=== PATIENT | male | born 1945 | race Caucasian/White ===

== ENCOUNTER 2016-11-04 09:27 | Emergency (ER) | payer MEDICARE, MEDICAID ==
[~2016-11-04] VITALS: Ht 180.3 cm; Wt 84.5 kg
[2016-11-04 09:31] VITALS: BP 107/66
[2016-11-04 10:30] LABS: HEMATOCRIT 44.9 % (39.2-51.8); HEMOGLOBIN 14.6 g/dL (13.7-18.0); WHITE BLOOD COUNT 9.9 x10^3/uL (3.4-10)
[2016-11-04 10:34] LABS: BLOOD UREA NITROGEN 17 mg/dL (7-18)
[2016-11-04 10:37] LABS: ASPARTATE AMINO TRANSFERASE 28 U/L (15-37)
[2016-11-04 10:42] LABS: ANISOCYTOSIS 1+; MICROCYTOSIS 1+
[2016-11-04 10:43] LABS: OVALOCYTES 1+
== END 2016-11-04 11:52 | disposition home or self-care (01) ==
LOC: ED 11:30
DX: F10.129 Alcohol abuse with intoxication, unspecified (principal); J44.9 Chronic obstructive pulmonary disease, unspecified; I10 Essential (primary) hypertension; F17.210 Nicotine dependence, cigarettes, uncomplicated
CPT/HCPCS: 36415; 80053; 80307; 82140; 85025; 85610; 85730; 99284

== ENCOUNTER 2016-11-18 17:28 | Emergency (ER) | payer MEDICARE, MEDICAID ==
[~2016-11-18] VITALS: Ht 177.8 cm; Wt 85.5 kg
[2016-11-18] MEDS ORDERED: THIAMINE 100MG TABLET PO ONE (18:00)
[2016-11-18] MEDS ORDERED: ALBUTEROL/IPRATROPIUM 2.5MG/0.5MG, 3 ML NPPB ONE (18:00)
[2016-11-18 18:27] LABS: HEMOGLOBIN 13.9 g/dL (13.7-18.0); WHITE BLOOD COUNT 6.9 x10^3/uL (3.4-10)
[2016-11-18 18:33] LABS: ASPARTATE AMINO TRANSFERASE 41 U/L (15-37); BLOOD UREA NITROGEN 19 mg/dL (7-18)
[2016-11-18 18:36] LABS: ACETAMINOPHEN < 2 mcg/mL (10-30)
[2016-11-18] MEDS ORDERED: ALBUTEROL/IPRATROPIUM 2.5MG/0.5MG, 3 ML ONE (18:39)
[2016-11-18] MEDS ORDERED: THIAMINE 100MG TABLET ONE (18:43)
[2016-11-18] MEDS ORDERED: AZITHROMYCIN 250 MG TABLET ONE (19:20)
[2016-11-18] MEDS ORDERED: AZITHROMYCIN 500 MG TABLET PO ONE (19:30)
[2016-11-19 00:22] VITALS: BP 114/60
== END 2016-11-19 00:24 | disposition home or self-care (01) ==
LOC: ED 21:14
DX: F10.129 Alcohol abuse with intoxication, unspecified (principal); J44.1 Chronic obstructive pulmonary disease with (acute) exacerbation
CPT/HCPCS: 36415; 71010; 80053; 80307; 80329; 85025; 93005; 94640; 99285; J7620; G0479; G0480

== ENCOUNTER 2017-04-12 13:30 | Inpatient (IN) | payer MEDICARE, MEDICAID ==
[~2017-04-12] VITALS: Ht 180.3 cm; Wt 87.3 kg
[2017-04-12] MEDS ORDERED: ALBUTEROL/IPRATROPIUM 2.5MG/0.5MG, 3 ML NPPB ONE (15:00)
[2017-04-12] MEDS ORDERED: methylPREDNISolone SOD SUCC 125 MG/2 ML IVPush SCH (17:30)
[2017-04-12] MEDS ORDERED: LORazepam 2 MG/ML, 1ML IVPush ONE (17:30)
[2017-04-12] MEDS ORDERED: SODIUM CHLORIDE 0.9% 1,000ML IVBOLUS ONE (17:30)
[2017-04-12 17:39] LABS: BASOPHILS # (AUTO) 0.05 x10^3/uL (0-0.1); BASOPHILS % (AUTO) 1 % (0-1); EOSINOPHILS # (AUTO) 0.02 x10^3/uL (0-0.4); EOSINOPHILS % (AUTO) 0 % (1-7); LYMPHOCYTES # (AUTO) 1.39 x10^3/uL (1-3.4); LYMPHOCYTES % (AUTO) 26 % (22-44); MD NO; MEAN CORPUSCULAR HEMOGLOBIN 27.9 pg (27.5-34.5); MEAN CORPUSCULAR HGB CONC 32.2 g/dL (33.2-36.2); MEAN CORPUSCULAR VOLUME 86.7 fL (81-97); MEAN PLATELET VOLUME 7.8 fL (7.4-10.4); MONOCYTES # (AUTO) 0.95 x10^3/uL (0.2-0.8); MONOCYTES % (AUTO) 18 % (2-9); NEUTROPHILS # (AUTO) 3.04 x10^3/uL (1.8-6.8); NEUTROPHILS % (AUTO) 56 % (42-75); PLATELET COUNT 295 x10^3/uL (130-400); RED CELL DISTRIBUTION WIDTH 18.8 % (9.4-14.8)
[2017-04-12] MEDS ORDERED: methylPREDNISolone SOD SUCC 125 MG/2 ML ONE (17:41)
[2017-04-12] MEDS ORDERED: LORazepam 2 MG/ML, 1ML ONE (17:42)
[2017-04-12 17:49] LABS: ANION GAP 12 mmol/L (5-15); CALCIUM 7.7 mg/dL (8.5-10.1); CHLORIDE 101 mmol/L (98-107)
[2017-04-12 17:51] LABS: CREATININE 0.82 mg/dL (0.7-1.3)
[2017-04-12] MEDS ORDERED: UMEC1DIS INH (18:11)
[2017-04-12] MEDS ORDERED: OMEP20TA62 PO (18:11)
[2017-04-12] MEDS ORDERED: ALBU18HF IH (18:11)
[2017-04-12] MEDS ORDERED: AMLO10TA2 PO (18:11)
[2017-04-12] MEDS ORDERED: POTASSIUM CHLORIDE 20 MEQ, MAGNESIUM SULFATE 2 GM, THIAMINE 100 MG, MVI ADULT 10 ML, FO... IV SCH (20:03)
[2017-04-12] MEDS ORDERED: ONDANSETRON 2MG/ML, 2ML IVPush PRN (20:30)
[2017-04-12] MEDS ORDERED: hydrALAzine 20 MG/ML, 1ML IVPush PRN (20:30)
[2017-04-12] MEDS ORDERED: LORazepam 2 MG/ML, 1ML IV PRN ×4 (20:30)
[2017-04-12] MEDS ORDERED: ACETAMINOPHEN 325 MG TABLET PO PRN (20:30)
[2017-04-12] MEDS ORDERED: D5%-0.9% NACL 1,000 ML IV SCH (20:30)
[2017-04-12] MEDS ORDERED: ALBUTEROL/IPRATROPIUM 2.5MG/0.5MG, 3 ML NPPB PRN (20:30)
[2017-04-12 21:00] VITALS: BP 152/76
[2017-04-12] MEDS ORDERED: ALBUTEROL SULFATE 2.5 MG/3 ML NPPB PRN (21:30)
[2017-04-12] MEDS: ENOXAPARIN 40 MG/0.4 ML SQ SCH (21:31)
[2017-04-12] MEDS: POTASSIUM CHLORIDE 20 MEQ, MAGNESIUM SULFATE 2 GM, MVI ADULT 10 ML, FOLIC ACID 1 MG in ... IV SCH (21:55)
[2017-04-12] MEDS: THIAMINE 100MG TABLET PO SCH (22:32)
[2017-04-12 22:43] VITALS: BP 139/68
[2017-04-13 01:50] VITALS: BP 126/65
[2017-04-13] MEDS: methylPREDNISolone SOD SUCC 125 MG/2 ML IVPush SCH ×5 (03:49→23:53)
[2017-04-13 05:41] LABS: BASOPHILS # (AUTO) 0.01 x10^3/uL (0-0.1); BASOPHILS % (AUTO) 0 % (0-1); EOSINOPHILS % (AUTO) 0 % (1-7); LYMPHOCYTES # (AUTO) 0.65 x10^3/uL (1-3.4); LYMPHOCYTES % (AUTO) 11 % (22-44); MD NO; MEAN CORPUSCULAR HEMOGLOBIN 28.7 pg (27.5-34.5); MEAN CORPUSCULAR HGB CONC 33.1 g/dL (33.2-36.2); MEAN CORPUSCULAR VOLUME 86.6 fL (81-97); MEAN PLATELET VOLUME 8.1 fL (7.4-10.4); MONOCYTES # (AUTO) 0.11 x10^3/uL (0.2-0.8); MONOCYTES % (AUTO) 2 % (2-9); NEUTROPHILS # (AUTO) 5.17 x10^3/uL (1.8-6.8); NEUTROPHILS % (AUTO) 87 % (42-75); PLATELET COUNT 256 x10^3/uL (130-400); RED BLOOD COUNT 5.07 x10^6/uL (4.38-5.82); RED CELL DISTRIBUTION WIDTH 18.4 % (9.4-14.8)
[2017-04-13 05:59] LABS: CHLORIDE 107 mmol/L (98-107)
[2017-04-13 06:08] LABS: ALANINE AMINOTRANSFERASE 76 U/L (12-78); ALBUMIN 2.9 g/dL (3.4-5.0); ALKALINE PHOSPHATASE 80 U/L (45-117); ANION GAP 7 mmol/L (5-15); BILIRUBIN,TOTAL 0.8 mg/dL (0.2-1.0); CALCIUM 7.3 mg/dL (8.5-10.1); CREATININE 0.85 mg/dL (0.7-1.3); TOTAL PROTEIN 6.3 g/dL (6.4-8.2)
[2017-04-13] MEDS: ALBUTEROL/IPRATROPIUM 2.5MG/0.5MG, 3 ML NPPB SCH ×4 (07:00→19:58)
[2017-04-13 07:43] VITALS: BP 156/83
[2017-04-13] MEDS: INSULIN LISPRO 100 UNITS/ML, PEN SQ-INSULIN SCH ×5 (08:00→20:50)
[2017-04-13] MEDS: THIAMINE 100MG TABLET PO SCH (08:03)
[2017-04-13] MEDS: DOXYCYCLINE 100MG TABLET PO SCH ×2 (08:03→20:49)
[2017-04-13] MEDS ORDERED: OMEPRAZOLE 20 MG CAPSULE.DR PO SCH (09:00)
[2017-04-13] MEDS: LORazepam 2 MG/ML, 1ML IV PRN (11:39)
[2017-04-13 12:35] VITALS: BP 145/73
[2017-04-13 12:36] VITALS: BP 116/67
[2017-04-13] MEDS: CHLORDIAZEPOXIDE 25 MG CAPSULE PO PRN (16:11)
[2017-04-13] MEDS: SUCRALFATE 1 GM/10 ML UDC PO SCH ×2 (16:11→20:49)
[2017-04-13 18:57] VITALS: BP 119/67
[2017-04-13] MEDS ORDERED: D5%-0.9% NACL 1,000 ML IV SCH (20:30)
[2017-04-13] MEDS: ENOXAPARIN 40 MG/0.4 ML SQ SCH (20:49)
[2017-04-13] MEDS: BACLOFEN 10 MG TABLET PO SCH (20:49)
[2017-04-13] MEDS: OMEPRAZOLE 20 MG CAPSULE.DR PO SCH (20:52)
[2017-04-13] MEDS: POTASSIUM CHLORIDE 20 MEQ, MAGNESIUM SULFATE 2 GM, MVI ADULT 10 ML, FOLIC ACID 1 MG in ... IV SCH (23:53)
[2017-04-14 04:04] VITALS: BP 148/75
[2017-04-14] MEDS: CHLORDIAZEPOXIDE 25 MG CAPSULE PO PRN ×3 (04:13→23:19)
[2017-04-14] MEDS: methylPREDNISolone SOD SUCC 125 MG/2 ML IVPush SCH ×4 (04:28→21:19)
[2017-04-14] MEDS: ALBUTEROL/IPRATROPIUM 2.5MG/0.5MG, 3 ML NPPB SCH ×4 (07:59→20:00)
[2017-04-14] MEDS: SUCRALFATE 1 GM/10 ML UDC PO SCH ×4 (08:04→21:24)
[2017-04-14 09:57] VITALS: BP 148/78
[2017-04-14] MEDS: THIAMINE 100MG TABLET PO SCH (10:00)
[2017-04-14] MEDS: INSULIN LISPRO 100 UNITS/ML, PEN SQ-INSULIN SCH ×6 (10:00→21:21)
[2017-04-14] MEDS: BACLOFEN 10 MG TABLET PO SCH ×2 (10:01→21:18)
[2017-04-14] MEDS: OMEPRAZOLE 20 MG CAPSULE.DR PO SCH ×2 (10:01→21:24)
[2017-04-14] MEDS: DOXYCYCLINE 100MG TABLET PO SCH ×2 (10:01→21:21)
[2017-04-14 12:58] VITALS: BP 162/69
[2017-04-14 19:15] VITALS: BP 146/72
[2017-04-14] MEDS ORDERED: AMLODIPINE 5 MG TABLET PO ONE (19:30)
[2017-04-14] MEDS: ENOXAPARIN 40 MG/0.4 ML SQ SCH ×2 (21:20→21:32)
[2017-04-14 21:26] VITALS: BP 130/71
[2017-04-14] MEDS: LORazepam 2 MG/ML, 1ML IV PRN (22:30)
[2017-04-14] MEDS: POTASSIUM CHLORIDE 20 MEQ, MAGNESIUM SULFATE 2 GM, MVI ADULT 10 ML, FOLIC ACID 1 MG in ... IV SCH (22:33)
[2017-04-15] MEDS: methylPREDNISolone SOD SUCC 125 MG/2 ML IVPush SCH ×4 (02:00→21:03)
[2017-04-15 03:13] VITALS: BP 157/68
[2017-04-15] MEDS: SUCRALFATE 1 GM/10 ML UDC PO SCH ×4 (07:00→21:04)
[2017-04-15] MEDS: INSULIN LISPRO 100 UNITS/ML, PEN SQ-INSULIN SCH ×4 (07:00→21:04)
[2017-04-15] MEDS: ALBUTEROL/IPRATROPIUM 2.5MG/0.5MG, 3 ML NPPB SCH (07:23)
[2017-04-15] MEDS: THIAMINE 100MG TABLET PO SCH (07:50)
[2017-04-15] MEDS: DOXYCYCLINE 100MG TABLET PO SCH ×2 (07:50→21:03)
[2017-04-15] MEDS: BACLOFEN 10 MG TABLET PO SCH ×2 (07:50→21:03)
[2017-04-15] MEDS: OMEPRAZOLE 20 MG CAPSULE.DR PO SCH ×2 (07:50→21:04)
[2017-04-15] MEDS: AMLODIPINE 5 MG TABLET PO SCH (07:51)
[2017-04-15 07:53] VITALS: BP 153/70
[2017-04-15 14:30] VITALS: BP 160/80
[2017-04-15] MEDS: CHLORDIAZEPOXIDE 25 MG CAPSULE PO PRN ×2 (16:17→23:05)
[2017-04-15 19:42] VITALS: BP 157/82
[2017-04-15] MEDS: ENOXAPARIN 40 MG/0.4 ML SQ SCH (21:03)
[2017-04-15 21:05] VITALS: BP 115/64
[2017-04-15] MEDS ORDERED: ALBUTEROL/IPRATROPIUM 2.5MG/0.5MG, 3 ML ONE (22:55)
[2017-04-16] MEDS: methylPREDNISolone SOD SUCC 125 MG/2 ML IVPush SCH ×3 (02:00→08:11)
[2017-04-16 03:31] VITALS: BP 118/66
[2017-04-16 05:42] LABS: ANION GAP 3 mmol/L (5-15); CALCIUM 7.4 mg/dL (8.5-10.1); CHLORIDE 106 mmol/L (98-107)
[2017-04-16 05:44] LABS: CREATININE 0.78 mg/dL (0.7-1.3)
[2017-04-16] MEDS: INSULIN LISPRO 100 UNITS/ML, PEN SQ-INSULIN SCH ×2 (07:00→11:00)
[2017-04-16] MEDS ORDERED: ALBUTEROL/IPRATROPIUM 2.5MG/0.5MG, 3 ML NPPB SCH (07:00)
[2017-04-16 08:09] VITALS: BP 145/74
[2017-04-16] MEDS: THIAMINE 100MG TABLET PO SCH (08:10)
[2017-04-16] MEDS: DOXYCYCLINE 100MG TABLET PO SCH (08:10)
[2017-04-16] MEDS: BACLOFEN 10 MG TABLET PO SCH (08:10)
[2017-04-16] MEDS: SUCRALFATE 1 GM/10 ML UDC PO SCH ×2 (08:11→11:00)
[2017-04-16] MEDS: AMLODIPINE 5 MG TABLET PO SCH (08:11)
[2017-04-16] MEDS: OMEPRAZOLE 20 MG CAPSULE.DR PO SCH (08:11)
[2017-04-16] MEDS ORDERED: IPRA3AMP NPPB (11:08)
[2017-04-16] MEDS ORDERED: DOXY100T PO (11:08)
[2017-04-16] MEDS ORDERED: CHLO25CA9 PO ×2 (11:08→11:46)
[2017-04-16] MEDS ORDERED: FOLI-17 PO (11:08)
[2017-04-16] MEDS ORDERED: SUCR1TAB33 PO (11:08)
[2017-04-16] MEDS ORDERED: OMEP-110 PO (11:08)
[2017-04-16] MEDS ORDERED: THIA100T6 PO (11:08)
== END 2017-04-16 13:51 | disposition home health service (06) | DRG 896 ==
LOC: SUATTDRO 19:54 → ED 20:05 → EDIP 20:10 → 5SO 21:11 → DCLOUNGE 04-16 13:34
PROVIDERS: ADMIT Hospitalist; ATTEND Internal Medicine
DX: F10.239 Alcohol dependence with withdrawal, unspecified (principal); J96.01 Acute respiratory failure with hypoxia; J44.1 Chronic obstructive pulmonary disease with (acute) exacerbation; F17.210 Nicotine dependence, cigarettes, uncomplicated; I10 Essential (primary) hypertension; K21.9 Gastro-esophageal reflux disease without esophagitis; Z88.8 Allergy status to other drugs, medicaments and biological substances
CPT/HCPCS: 36415; 71046; 80048; 80053; 80307; 82962; 83735; 84100; 85025; 93005; 94640; 96374; 96375; J1650; J3475; J3480; J7042; J7620; J1815; J2060; J2930; J7030

== ENCOUNTER → 2017-08-13 | Outpatient (CLI) | payer MEDICARE, MEDICAID ==
[~2017-08-13] MED LIST: ALBU18HF IH; AMLO10TA2 PO; CHLO25CA9 PO; DOXY100T PO; FOLI-17 PO; IPRA3AMP NPPB; OMEP-110 PO; OMEP20TA62 PO; SUCR1TAB33 PO; THIA100T6 PO; UMEC1DIS INH
== END | disposition home or self-care (01) ==
LOC: CFH 07:51
PROVIDERS: ATTEND Nurse Practitioner Family
DX: I25.10 Atherosclerotic heart disease of native coronary artery without angina pectoris (principal); J18.9 Pneumonia, unspecified organism; J44.9 Chronic obstructive pulmonary disease, unspecified; J98.11 Atelectasis
CPT/HCPCS: 71250

== ENCOUNTER 2017-08-16 09:17 | Inpatient (IN) | payer MEDICARE, MEDICAID ==
[~2017-08-16] VITALS: Ht 177.8 cm; Wt 86.5 kg
[2017-08-16 09:45] LABS: BASOPHILS # (AUTO) 0.06 x10^3/uL (0-0.1); BASOPHILS % (AUTO) 1 % (0-1); EOSINOPHILS # (AUTO) 0.08 x10^3/uL (0-0.4); EOSINOPHILS % (AUTO) 1 % (1-7); LYMPHOCYTES % (AUTO) 21 % (22-44); MD NO; MEAN CORPUSCULAR HEMOGLOBIN 29.6 pg (27.5-34.5); MEAN CORPUSCULAR HGB CONC 33.5 g/dL (33.2-36.2); MEAN CORPUSCULAR VOLUME 88.3 fL (81-97); MEAN PLATELET VOLUME 7.8 fL (7.4-10.4); MONOCYTES # (AUTO) 0.64 x10^3/uL (0.2-0.8); MONOCYTES % (AUTO) 6 % (2-9); NEUTROPHILS # (AUTO) 8.18 x10^3/uL (1.8-6.8); NEUTROPHILS % (AUTO) 73 % (42-75); PLATELET COUNT 354 x10^3/uL (130-400); RED BLOOD COUNT 5.96 x10^6/uL (4.38-5.82); RED CELL DISTRIBUTION WIDTH 16.6 % (9.4-14.8)
[2017-08-16 09:56] LABS: ALBUMIN 3.8 g/dL (3.4-5.0); ANION GAP 10 mmol/L (5-15); CHLORIDE 108 mmol/L (98-107); CREATININE 1.02 mg/dL (0.7-1.3)
[2017-08-16] MEDS ORDERED: ALBU8.5H8 INH (11:10)
[2017-08-16] MEDS ORDERED: ALBUTEROL/IPRATROPIUM 2.5MG/0.5MG, 3 ML ONE (11:22)
[2017-08-16] MEDS ORDERED: LEVOFLOXACIN/PMX 750MG/150ML 150 ML IV ONE (11:30)
[2017-08-16] MEDS ORDERED: ALBUTEROL/IPRATROPIUM 2.5MG/0.5MG, 3 ML NPPB ONE (11:30)
[2017-08-16] MEDS ORDERED: LEVOFLOXACIN/PMX 750MG/150ML 150 ML ONE (11:35)
[2017-08-16 13:29] VITALS: BP 112/65
[2017-08-16] MEDS ORDERED: LORazepam 0.5MG TABLET PO PRN (13:30)
[2017-08-16] MEDS ORDERED: LORazepam 2 MG/ML, 1ML IV PRN ×5 (13:30)
[2017-08-16] MEDS ORDERED: LORazepam 1MG TABLET PO PRN ×4 (13:30)
[2017-08-16] MEDS ORDERED: CEFTRIAXONE PMX 2GM/50ML 50 ML IV SCH (13:30)
[2017-08-16] MEDS: ALBUTEROL/IPRATROPIUM 2.5MG/0.5MG, 3 ML NPPB SCH ×2 (14:17→19:21)
[2017-08-16] MEDS ORDERED: ALBUTEROL SULFATE 2.5 MG/3 ML NPPB PRN (14:30)
[2017-08-16] MEDS: TEMPLATE NON-FORMULARY MED. (Albuterol Sulfate (Proair Hfa) 1 PUFF) INH SCH ×2 (15:52→21:00)
[2017-08-16] MEDS: POTASSIUM CHLORIDE 40 MEQ, MVI ADULT 10 ML, FOLIC ACID 1 MG, MAGNESIUM SULFATE 1 GM in ... IV SCH (15:52)
[2017-08-16] MEDS: HEPARIN 5,000 UNITS/ML, 1ML SQ SCH (15:52)
[2017-08-16] MEDS ORDERED: ALBUTEROL SULFATE 2.5 MG/3 ML NPPB SCH (16:00)
[2017-08-16] MEDS ORDERED: ONDANSETRON 2MG/ML, 2ML IVPush PRN (16:30)
[2017-08-16 19:41] VITALS: BP 116/54
[2017-08-17] MEDS: HEPARIN 5,000 UNITS/ML, 1ML SQ SCH ×2 (00:05→08:00)
[2017-08-17 03:21] VITALS: BP 112/62
[2017-08-17] MEDS: TEMPLATE NON-FORMULARY MED. (Albuterol Sulfate (Proair Hfa) 1 PUFF) INH SCH ×2 (06:00→11:00)
[2017-08-17] MEDS: ALBUTEROL/IPRATROPIUM 2.5MG/0.5MG, 3 ML NPPB SCH (06:32)
[2017-08-17 06:45] VITALS: BP 124/63
[2017-08-17 08:19] LABS: BASOPHILS # (AUTO) 0.13 x10^3/uL (0-0.1); BASOPHILS % (AUTO) 1 % (0-1); EOSINOPHILS % (AUTO) 1 % (1-7); LYMPHOCYTES # (AUTO) 1.79 x10^3/uL (1-3.4); LYMPHOCYTES % (AUTO) 19 % (22-44); MD NO; MEAN CORPUSCULAR HEMOGLOBIN 29.7 pg (27.5-34.5); MEAN CORPUSCULAR HGB CONC 33.3 g/dL (33.2-36.2); MEAN CORPUSCULAR VOLUME 89.1 fL (81-97); MEAN PLATELET VOLUME 8.6 fL (7.4-10.4); MONOCYTES # (AUTO) 0.95 x10^3/uL (0.2-0.8); MONOCYTES % (AUTO) 10 % (2-9); NEUTROPHILS # (AUTO) 6.43 x10^3/uL (1.8-6.8); NEUTROPHILS % (AUTO) 68 % (42-75); PLATELET COUNT 285 x10^3/uL (130-400); RED BLOOD COUNT 5.33 x10^6/uL (4.38-5.82); RED CELL DISTRIBUTION WIDTH 16.4 % (9.4-14.8)
[2017-08-17] MEDS ORDERED: NICOTINE 21 MG/24 HR PATCH.TD24 TD SCH (09:00)
[2017-08-17] MEDS ORDERED: AMLODIPINE 5 MG TABLET PO SCH (09:00)
[2017-08-17] MEDS ORDERED: TEMPLATE NON-FORMULARY MED. (Umeclidinium Brm/Vilanterol Tr (Anoro Ellipta 62.5-25 Mcg Inh INH SCH (09:00)
[2017-08-17] MEDS ORDERED: AMOX-291 PO (09:29)
[2017-08-17] MEDS ORDERED: DOXY100T10 PO (09:29)
[2017-08-17] MEDS: POTASSIUM CHLORIDE 40 MEQ, MVI ADULT 10 ML, FOLIC ACID 1 MG, MAGNESIUM SULFATE 1 GM in ... IV SCH (10:51)
== END 2017-08-17 13:00 | disposition home or self-care (01) | DRG 193 ==
LOC: ED 11:31 → EDIP 11:59 → 3NE 12:31 → DCLOUNGE 08-17 12:56
PROVIDERS: ADMIT Internal Medicine; ATTEND Internal Medicine
DX: J18.1 Lobar pneumonia, unspecified organism (principal); J96.01 Acute respiratory failure with hypoxia; J44.0 Chronic obstructive pulmonary disease with (acute) lower respiratory infection; F10.229 Alcohol dependence with intoxication, unspecified; I10 Essential (primary) hypertension; F17.200 Nicotine dependence, unspecified, uncomplicated; K21.9 Gastro-esophageal reflux disease without esophagitis; Z80.1 Family history of malignant neoplasm of trachea, bronchus and lung; Z82.3 Family history of stroke; Z88.1 Allergy status to other antibiotic agents
CPT/HCPCS: 36415; 71046; 80048; 82040; 83605; 83735; 84100; 84145; 85025; 87040; 93005; 94640; 99285; J0696; J1644; J1956; J2405; J3475; J3480; J7620; J7030

== ENCOUNTER 2017-08-18 14:44 | Emergency (ER) | payer MEDICARE, MEDICAID ==
[~2017-08-18] VITALS: Ht 180.3 cm; Wt 83.6 kg
[~2017-08-18 14:44] MED LIST changes: +ALBU8.5H8 INH; +AMOX-291 PO; +DOXY100T10 PO
[2017-08-18 14:52] VITALS: BP 126/72
[2017-08-18] MEDS ORDERED: ALBUTEROL/IPRATROPIUM 2.5MG/0.5MG, 3 ML NPPB ONE (15:30)
[2017-08-18 15:35] LABS: ALANINE AMINOTRANSFERASE 30 U/L (12-78); ALBUMIN 3.5 g/dL (3.4-5.0); ANION GAP 9 mmol/L (5-15); CALCIUM 8.5 mg/dL (8.5-10.1); CHLORIDE 110 mmol/L (98-107); CREATININE 0.92 mg/dL (0.7-1.3)
[2017-08-18 15:36] LABS: BASOPHILS # (AUTO) 0.06 x10^3/uL (0-0.1); BASOPHILS % (AUTO) 1 % (0-1); EOSINOPHILS # (AUTO) 0.08 x10^3/uL (0-0.4); EOSINOPHILS % (AUTO) 1 % (1-7); LYMPHOCYTES # (AUTO) 2.44 x10^3/uL (1-3.4); LYMPHOCYTES % (AUTO) 33 % (22-44); MD NO; MEAN CORPUSCULAR HEMOGLOBIN 29.5 pg (27.5-34.5); MEAN CORPUSCULAR HGB CONC 33.3 g/dL (33.2-36.2); MEAN CORPUSCULAR VOLUME 88.5 fL (81-97); MEAN PLATELET VOLUME 7.8 fL (7.4-10.4); MONOCYTES % (AUTO) 8 % (2-9); NEUTROPHILS # (AUTO) 4.13 x10^3/uL (1.8-6.8); NEUTROPHILS % (AUTO) 57 % (42-75); PLATELET COUNT 329 x10^3/uL (130-400); RED BLOOD COUNT 5.78 x10^6/uL (4.38-5.82); RED CELL DISTRIBUTION WIDTH 16.3 % (9.4-14.8)
[2017-08-18 15:39] LABS: ALKALINE PHOSPHATASE 91 U/L (45-117); BILIRUBIN,TOTAL 0.3 mg/dL (0.2-1.0); TOTAL PROTEIN 7.5 g/dL (6.4-8.2); TROPONIN I < 0.015 ng/mL (0.000-0.045)
== END 2017-08-18 19:00 | disposition home or self-care (01) ==
LOC: ED 16:42
DX: J44.1 Chronic obstructive pulmonary disease with (acute) exacerbation (principal); F10.220 Alcohol dependence with intoxication, uncomplicated; I10 Essential (primary) hypertension; Z91.14 Patient's other noncompliance with medication regimen; Z88.1 Allergy status to other antibiotic agents
CPT/HCPCS: 36415; 71045; 80053; 83880; 84484; 85025; 93005; 99285

== ENCOUNTER 2019-02-07 13:45 | Emergency (ER) | payer MEDICARE ==
[~2019-02-07] VITALS: Ht 182.9 cm; Wt 84.0 kg
[~2019-02-07 13:45] MED LIST changes: -AMLO10TA2 PO; +AMLO10TA8 PO; +CEFD300C37 PO; +DOXY100C2 PO; -DOXY100T10 PO; +DOXY100T23 PO; -IPRA3AMP NPPB; +IPRA3AMP30 NPPB; -THIA100T6 PO; +THIA100T67 PO
[2019-02-07 13:54] VITALS: BP 138/69
--- NOTE | 2019-02-07 13:58 | NUR ---
TOO. REPORT RECEIVED FROM EMS. +ETOH. PT HAS BEEN DRINKING A LOT X 7 DAYS. C/O NUMBNESS ON RIGHT INDEX FINGER. DENIES N/V/D. PT'S AOX4. RESPS EVEN AND UNLABORED. BP/SPO2 MONITORS IN PLACE. CALL LIGHT WITHIN REACH.
--- NOTE | 2019-02-07 14:07 | NUR ---
TASK RN: PT RESTING ON GURNEY IN POSITION OF COMFORT. VSS ON 2LNC. NO NEEDS EXPRESSED. CALL LIGHT WITHIN REACH. AWAITING FURTHER ORDERS.
--- NOTE | 2019-02-07 14:11 | NUR ---
DR. WATSON TO BS. AWAITING ORDERS.
[2019-02-07 14:38] LABS: BASOPHILS # (AUTO) 0.08 x10^3/uL (0-0.1); BASOPHILS % (AUTO) 1 % (0-1); EOSINOPHILS # (AUTO) 0.13 x10^3/uL (0-0.4); EOSINOPHILS % (AUTO) 2 % (1-7); LYMPHOCYTES # (AUTO) 2.14 x10^3/uL (1-3.4); LYMPHOCYTES % (AUTO) 26 % (22-44); MD NO; MEAN CORPUSCULAR HEMOGLOBIN 31.8 pg (27.5-34.5); MEAN CORPUSCULAR HGB CONC 32.6 g/dL (33.2-36.2); MEAN CORPUSCULAR VOLUME 97.5 fL (81-97); MEAN PLATELET VOLUME 7.6 fL (7.4-10.4); MONOCYTES % (AUTO) 6 % (2-9); NEUTROPHILS % (AUTO) 66 % (42-75); PLATELET COUNT 351 x10^3/uL (130-400); RED CELL DISTRIBUTION WIDTH 15.1 % (9.4-14.8)
[2019-02-07 14:48] LABS: ALBUMIN 3.5 g/dL (3.4-5.0); ANION GAP 6 mmol/L (5-15); CALCIUM 8.3 mg/dL (8.5-10.1); CHLORIDE 111 mmol/L (98-107); CREATININE 0.88 mg/dL (0.7-1.3)
[2019-02-07 14:52] LABS: ALANINE AMINOTRANSFERASE 27 U/L (12-78); ALKALINE PHOSPHATASE 74 U/L (45-117); BILIRUBIN,TOTAL 0.3 mg/dL (0.2-1.0)
--- NOTE | 2019-02-07 15:01 | NUR ---
PT BACK TO ROOM FROM CT NOW.
--- NOTE | 2019-02-07 15:13 | NUR ---
EKG DONE AT BEDSIDE BY EMT.
--- NOTE | 2019-02-07 15:21 | NUR ---
PT IS ABLT TO AMB WITH STEADY GAIT. EDMD NOTIFIED.
--- NOTE | 2019-02-07 15:36 | NUR ---
Patient given discharge instructions and they have confirmed that they understand the instructions. Patient ambulatory with steady gait. TAXI VOUCHER GIVEN AT MS.
== END 2019-02-07 15:38 | disposition home or self-care (01) ==
LOC: ED 15:25
DX: F10.229 Alcohol dependence with intoxication, unspecified (principal); G62.1 Alcoholic polyneuropathy; I10 Essential (primary) hypertension; J44.9 Chronic obstructive pulmonary disease, unspecified; Y90.9 Presence of alcohol in blood, level not specified
CPT/HCPCS: 36415; 70450; 71045; 80053; 85025; 93005; 99284

== ENCOUNTER 2019-02-24 08:51 | Observation (INO) | payer MEDICARE ==
[~2019-02-24] VITALS: Ht 167.6 cm; Wt 82.4 kg
--- NOTE | 2019-02-24 09:09 | NUR ---
BIB [facility] PT WITH C/O WORSENING COUGH WITH GREEN SPUTUM FOR THE LAST FEW DAYS. PT WITH HX COPD, WEARS 3 LNC NOC, PT ARRIVES WITH 3L AT THIS TIME SATING 93-94%. PT RA 87 PER EMS. 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 PT PLACED ON CARD MONITOR, CONT PULSE OX, BP. EKG COMPLETED
[2019-02-24] MEDS ORDERED: methylPREDNISolone SOD SUCC 125 MG/2 ML ONE (09:27)
[2019-02-24] MEDS ORDERED: ALBUTEROL/IPRATROPIUM 2.5MG/0.5MG, 3 ML NPPB ONE (09:30)
[2019-02-24] MEDS ORDERED: methylPREDNISolone SOD SUCC 125 MG/2 ML IV ONE (09:30)
[2019-02-24] MEDS ORDERED: SODIUM CHLORIDE 0.9% 1,000ML IVBOLUS ONE (09:30)
--- NOTE | 2019-02-24 09:39 | NUR ---
ERMD IN TO EVAL PT, PIV INITIATED, PT MEDICATED PER MAR
[2019-02-24] MEDS ORDERED: ALBUTEROL/IPRATROPIUM 2.5MG/0.5MG, 3 ML ONE (10:04)
[2019-02-24 10:09] LABS: BASOPHILS # (AUTO) 0.04 x10^3/uL (0-0.1); BASOPHILS % (AUTO) 0 % (0-1); EOSINOPHILS # (AUTO) 0.08 x10^3/uL (0-0.4); EOSINOPHILS % (AUTO) 1 % (1-7); LYMPHOCYTES # (AUTO) 1.39 x10^3/uL (1-3.4); LYMPHOCYTES % (AUTO) 14 % (22-44); MD NO; MEAN CORPUSCULAR HEMOGLOBIN 32.5 pg (27.5-34.5); MEAN CORPUSCULAR HGB CONC 33.3 g/dL (33.2-36.2); MEAN CORPUSCULAR VOLUME 97.8 fL (81-97); MEAN PLATELET VOLUME 8.1 fL (7.4-10.4); MONOCYTES # (AUTO) 1.11 x10^3/uL (0.2-0.8); MONOCYTES % (AUTO) 11 % (2-9); NEUTROPHILS # (AUTO) 7.44 x10^3/uL (1.8-6.8); NEUTROPHILS % (AUTO) 74 % (42-75); PLATELET COUNT 254 x10^3/uL (130-400); RED BLOOD COUNT 4.76 x10^6/uL (4.38-5.82); RED CELL DISTRIBUTION WIDTH 15.3 % (9.4-14.8)
[2019-02-24 10:18] LABS: INTERNATIONAL NORMALIZED RATIO 1.01 (0.93-1.1); PROTHROMBIN TIME 10.6 Seconds (9.6-11.5)
[2019-02-24 10:23] LABS: ALANINE AMINOTRANSFERASE 41 U/L (12-78); ALBUMIN 3.3 g/dL (3.4-5.0); ANION GAP 9 mmol/L (5-15); CALCIUM 7.7 mg/dL (8.5-10.1); CHLORIDE 108 mmol/L (98-107); CREATININE 0.82 mg/dL (0.7-1.3)
[2019-02-24 10:28] LABS: ALKALINE PHOSPHATASE 79 U/L (45-117); BILIRUBIN,TOTAL 0.8 mg/dL (0.2-1.0); TOTAL PROTEIN 6.8 g/dL (6.4-8.2); TROPONIN I < 0.015 ng/mL (0.000-0.045)
--- NOTE | 2019-02-24 11:07 | NUR ---
PT BACK FROM IMAGING AT THIS TIME, AWAITING RESULTS. NAD NOTED.
[2019-02-24] MEDS ORDERED: LORazepam 2 MG/ML, 1ML ONE (11:11)
[2019-02-24] MEDS ORDERED: LORazepam 1MG TABLET PO ONE (11:30)
[2019-02-24] MEDS ORDERED: LORazepam 2 MG/ML, 1ML IVPush ONE (11:30)
--- NOTE | 2019-02-24 11:41 | NUR ---
PT AMBULATED IN [place] FOR ROADTEST PER MD REQUEST. PT ABLE TO AMBULATE STEADY WITH FWW ASSIT, ALTHOUGH PT DID BECOME SOB AND DIZZY, PT SATING 88/89% WHILE AMBULATING. WILL UPDATE
--- NOTE | 2019-02-24 12:33 | NUR ---
PT RESTING ON GURNEY AT THIS TIME, PT WITH INCREASED O2 NEEDS POST ROAD TEST PT FROM 3LNC TO 6LNC SATING 91-92%. RR EVEN AND UNLABORED. WILL UPDATE ERMD
--- NOTE | 2019-02-24 13:13 | NUR ---
ADMITTING MD IN TO [facility] PT. AWAITING MED/TELE BED PLACEMENT
[2019-02-24] MEDS ORDERED: POLYETHYLENE GLYCOL 17 GM PACKET PO PRN (13:30)
[2019-02-24] MEDS ORDERED: LORazepam 1MG TABLET PO PRN ×3 (13:30)
[2019-02-24] MEDS ORDERED: LORazepam 2 MG/ML, 1ML IV PRN (13:30)
[2019-02-24] MEDS ORDERED: ONDANSETRON 2MG/ML, 2ML IVPush PRN (13:30)
[2019-02-24] MEDS ORDERED: DOCUSATE 100 MG CAPSULE PO PRN (13:30)
[2019-02-24] MEDS ORDERED: BISACODYL 10 MG SUPP PR PRN (13:30)
[2019-02-24] MEDS ORDERED: ENOXAPARIN 40 MG/0.4 ML SQ SCH (13:30)
[2019-02-24] MEDS ORDERED: THIAMINE 100MG TABLET PO ONE (13:30)
--- NOTE | 2019-02-24 14:08 | NUR ---
BREAK RN: ASSISTED PT TO RESTROOM, GAIT SLOW AND STEADY, SOB WITH MIN. EXERTION, BACK TO BED WITH ASSIST. PT REQUESTED LUNCH, WILL FOLLOW UP FOR ORDERS.
--- NOTE | 2019-02-24 14:09 | NUR ---
BREAK RN: ORDERED REGULAR MEAL FOR PATIENT.
[2019-02-24] MEDS ORDERED: OMEP-110 PO (14:52)
--- NOTE | 2019-02-24 14:58 | NUR ---
REPORT TO RECIEVING RN
[2019-02-24 15:42] VITALS: BP 132/73
[2019-02-24] MEDS: ALBUTEROL SULFATE 2.5 MG/3 ML NPPB SCH ×2 (16:30→20:23)
[2019-02-24] MEDS: methylPREDNISolone SOD SUCC 125 MG/2 ML IVPush SCH ×2 (17:40→19:33)
[2019-02-24] MEDS: CHLORDIAZEPOXIDE 25 MG CAPSULE PO SCH ×2 (17:41→21:51)
[2019-02-24] MEDS: DOXYCYCLINE 100 MG in DEXTROSE 5% 250 ML IV SCH (17:42)
[2019-02-24 17:46] LABS: TROPONIN I < 0.015 ng/mL (0.000-0.045)
[2019-02-24] MEDS: SODIUM CHLORIDE 0.9% 1,000 ML IV SCH ×2 (17:52→19:34)
[2019-02-24] MEDS: NICOTINE 21 MG/24 HR PATCH.TD24 TD SCH (17:53)
[2019-02-24 20:29] VITALS: BP 110/63
[2019-02-24] MEDS ORDERED: BUDESONIDE 0.5 MG/2 ML INHA NPPB SCH (21:00)
[2019-02-24 22:37] LABS: TROPONIN I < 0.015 ng/mL (0.000-0.045)
[2019-02-25] MEDS: methylPREDNISolone SOD SUCC 125 MG/2 ML IVPush SCH ×2 (01:19→08:12)
[2019-02-25] MEDS: SODIUM CHLORIDE 0.9% 1,000 ML IV SCH (01:20)
[2019-02-25] MEDS: DOXYCYCLINE 100 MG in DEXTROSE 5% 250 ML IV SCH (01:23)
[2019-02-25 01:33] VITALS: BP 122/65
[2019-02-25] MEDS: CHLORDIAZEPOXIDE 25 MG CAPSULE PO SCH ×2 (05:01)
[2019-02-25 05:23] LABS: BASOPHILS # (AUTO) 0.03 x10^3/uL (0-0.1); BASOPHILS % (AUTO) 0 % (0-1); EOSINOPHILS % (AUTO) 0 % (1-7); LYMPHOCYTES # (AUTO) 0.74 x10^3/uL (1-3.4); LYMPHOCYTES % (AUTO) 7 % (22-44); MD NO; MEAN CORPUSCULAR HEMOGLOBIN 32.3 pg (27.5-34.5); MEAN CORPUSCULAR VOLUME 97.8 fL (81-97); MEAN PLATELET VOLUME 8.5 fL (7.4-10.4); MONOCYTES # (AUTO) 0.17 x10^3/uL (0.2-0.8); MONOCYTES % (AUTO) 2 % (2-9); NEUTROPHILS # (AUTO) 9.02 x10^3/uL (1.8-6.8); NEUTROPHILS % (AUTO) 91 % (42-75); PLATELET COUNT 210 x10^3/uL (130-400); RED BLOOD COUNT 4.54 x10^6/uL (4.38-5.82); RED CELL DISTRIBUTION WIDTH 14.8 % (9.4-14.8)
[2019-02-25 05:35] LABS: ALBUMIN 2.9 g/dL (3.4-5.0); ANION GAP 4 mmol/L (5-15); CALCIUM 7.7 mg/dL (8.5-10.1); CHLORIDE 106 mmol/L (98-107)
[2019-02-25 05:38] LABS: ALANINE AMINOTRANSFERASE 30 U/L (12-78); ALKALINE PHOSPHATASE 67 U/L (45-117); BILIRUBIN,TOTAL 0.7 mg/dL (0.2-1.0); CREATININE 0.73 mg/dL (0.7-1.3); TOTAL PROTEIN 6.1 g/dL (6.4-8.2)
[2019-02-25 07:10] VITALS: BP 122/69
[2019-02-25] MEDS ORDERED: MULTIVITAMINS/MINERALS TABLET PO SCH (09:00)
[2019-02-25] MEDS ORDERED: MULTIVITAMIN 1 TABLET PO SCH (09:00)
[2019-02-25] MEDS ORDERED: THIAMINE 100MG TABLET PO SCH (09:00)
[2019-02-25] MEDS ORDERED: FOLIC ACID 1 MG TABLET PO SCH (09:00)
[2019-02-25] MEDS: NICOTINE 21 MG/24 HR PATCH.TD24 TD SCH (09:09)
[2019-02-25 13:14] VITALS: BP 118/70
[2019-02-25] MEDS ORDERED: THIA100T67 PO (15:11)
[2019-02-25] MEDS ORDERED: FOLI-17 PO (15:11)
[2019-02-25] MEDS ORDERED: DOXY100T PO (15:11)
[2019-02-25] MEDS ORDERED: MULT1TAB60 PO (15:11)
[2019-02-25] MEDS ORDERED: CHLORDIAZEPOXIDE 25 MG CAPSULE PO SCH ×2 (16:00)
[2019-02-25] MEDS ORDERED: DOXYCYCLINE 100MG TABLET PO SCH (21:00)
== END 2019-02-25 15:57 | disposition home or self-care (01) ==
LOC: SUATTDRO 12:15 → ED 12:42 → EDIP 12:43 → INTOOBSV 12:43 → ED 13:11 → 5SO 15:30 → DCLOUNGE 02-25 15:54
PROVIDERS: ADMIT Internal Medicine; ATTEND Internal Medicine
DX: J96.20 Acute and chronic respiratory failure, unspecified whether with hypoxia or hypercapnia (principal); J44.1 Chronic obstructive pulmonary disease with (acute) exacerbation; J20.9 Acute bronchitis, unspecified; J44.0 Chronic obstructive pulmonary disease with (acute) lower respiratory infection; R65.10 Systemic inflammatory response syndrome (SIRS) of non-infectious origin without acute organ dysfunction; E87.2 Acidosis; E88.09 Other disorders of plasma-protein metabolism, not elsewhere classified; F10.229 Alcohol dependence with intoxication, unspecified; I10 Essential (primary) hypertension; K21.9 Gastro-esophageal reflux disease without esophagitis; F17.200 Nicotine dependence, unspecified, uncomplicated; E86.0 Dehydration; Z79.899 Other long term (current) drug therapy
CPT/HCPCS: 36415; 70450; 71045; 80053; 80307; 83605; 83735; 83880; 84100; 84484; 85025; 85610; 87040; 93005; 94640; 96360; 96365; 96366; 96375; 96376; 99285; G0378; J2060; J2930; J7030; J7060; J7613; J7620; J7626

== ENCOUNTER 2019-07-20 18:06 | Emergency (ER) | payer MEDICARE, MEDICAID ==
[~2019-07-20] VITALS: Ht 182.9 cm; Wt 82.0 kg
[~2019-07-20 18:06] MED LIST changes: +ACAM333T7 PO; +DULO30CA2 PO; +MULT-449 PO
--- NOTE | 2019-07-20 18:21 | NUR ---
THIS IS A 73 YO M BIB EMS W/ C/O ETOH/SI. EMS REPORTS PT CAME FROM [place]. PT TRIED TO CHECK IN FOR SI BUT WAS TO INTOXICATED. PT REPORTS HE HAS HAD SI FOR YEARS. HIS PLAN IS TO JUMP OUT OF A CAR OR DRINK HIMSELF TO . PT IS UNSURE OF INTENT TO ACT ON THESE THOUGHTS. PT REPORTS HE DOES NOT OWN A CAR, DRINKS 1 GALLON OF VODKA/DAY. HAD 2 PINTS TODAY. CURRENT BREATH ALCOHOL IS 0.201. PT IS HYPOXIC AT 89% RA, PLACE ON 2L W/ DESIRED EFFECT. HX OF COPD. OTHER VS WDL. PTS BELONGINGS REMOVED AND PLACED IN SAFETY LOCKER. PT IS IN GOWN, RESTING ON GURNEY. GIVEN URINAL AND ASKED TO PROVIDE URINE SAMPLE. AWAITING ED EVAL.
[2019-07-20 18:44] LABS: BASOPHILS # (AUTO) 0.07 x10^3/uL (0-0.1); BASOPHILS % (AUTO) 1 % (0-1); EOSINOPHILS # (AUTO) 0.09 x10^3/uL (0-0.4); EOSINOPHILS % (AUTO) 1 % (1-7); LYMPHOCYTES # (AUTO) 2.31 x10^3/uL (1-3.4); LYMPHOCYTES % (AUTO) 31 % (22-44); MD NO; MEAN CORPUSCULAR HEMOGLOBIN 31.4 pg (27.5-34.5); MEAN CORPUSCULAR HGB CONC 33.7 g/dL (33.2-36.2); MEAN PLATELET VOLUME 7.7 fL (7.4-10.4); MONOCYTES % (AUTO) 8 % (2-9); NEUTROPHILS # (AUTO) 4.33 x10^3/uL (1.8-6.8); NEUTROPHILS % (AUTO) 59 % (42-75); PLATELET COUNT 302 x10^3/uL (130-400); RED BLOOD COUNT 4.87 x10^6/uL (4.38-5.82); RED CELL DISTRIBUTION WIDTH 14.7 % (9.4-14.8)
[2019-07-20 18:55] LABS: AMPHETAMINE SCREEN, URINE Negative (Negative); BARBITURATE SCREEN, URINE Negative (Negative); BENZODIAZEPINE SCREEN, URINE Negative (Negative); CANNABINOID SCREEN, URINE Positive (Negative); COCAINE SCREEN, URINE Negative (Negative); METHADONE SCREEN, URINE Negative (Negative); OPIATE SCREEN, URINE Negative (Negative)
[2019-07-20 18:57] LABS: ALBUMIN 3.1 g/dL (3.4-5.0); ANION GAP 13 mmol/L (5-15); CHLORIDE 100 mmol/L (98-107)
--- NOTE | 2019-07-20 19:00 | NUR ---
MED REC DONE.
[2019-07-20 19:01] LABS: ALANINE AMINOTRANSFERASE 51 U/L (12-78); ALKALINE PHOSPHATASE 89 U/L (45-117); BILIRUBIN,TOTAL 0.8 mg/dL (0.2-1.0); CREATININE 1.03 mg/dL (0.7-1.3); TOTAL PROTEIN 6.5 g/dL (6.4-8.2)
[2019-07-20 19:22] LABS: SALICYLATE LEVEL < 1.7 mg/dL (2.8-20.0)
--- NOTE | 2019-07-20 19:23 | NUR ---
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 RN NOTIFIED.
--- NOTE | 2019-07-20 19:27 | NUR ---
PT PROVIDED DINNER TRAY.
--- NOTE | 2019-07-20 19:57 | NUR ---
PT RESTING ON GURNEY W/ SITTER OUTSIDE ROOM. RESP EVEN AND UNLABORED, NADN. PER PLAN IS FOR PT TO SOBER UP AND THEN TO BE EVALUATED BY TELEPSYCH.
--- NOTE | 2019-07-21 00:08 | NUR ---
TELEPSYCH CAMERA AT BEDSIDE FOR EVAL.
--- NOTE | 2019-07-21 01:04 | NUR ---
REPORT GIVEN TO PATT GARCIA.
[2019-07-21] MEDS ORDERED: LORazepam 1MG TABLET PO ONE (01:30)
--- NOTE | 2019-07-21 02:16 | NUR ---
REFUSED BY [facility] AT THIS TIME, INSURANCE WILL BE RE-ASSESSED IN THE AM
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
--- NOTE | 2019-07-21 05:25 | NUR ---
PT SLEEPING ON CART. RR EVEN, NON LABORED. REMAINS ON 2L NC. REPORT TO [facility], WILL CALL BACK AFTER 0600, ONCE THEY SPEAK Eliseo GARCIA. BREAKFAST TRAY ORDERED.
--- NOTE | 2019-07-21 06:13 | NUR ---
MT: ARLENE BOSTON CALLED AND STATED THEY ARE WILLING TO TAKE THE PT.
--- NOTE | 2019-07-21 06:17 | NUR ---
PT ACCEPTED TO [facility]. DR AMBROSIO
--- NOTE | 2019-07-21 07:03 | NUR ---
SBAR HAND-OFF REPORT RECEIVED FROM ANA CRISTINA GUPTA. ASSUMING CARE OF PATIENT.
[2019-07-21] MEDS ORDERED: MAALOX/HYOSCYAMINE/LIDOCAINE 45 ML BTL ONE (07:37)
[2019-07-21] MEDS ORDERED: LORazepam 1MG TABLET ONE (07:37)
--- NOTE | 2019-07-21 07:39 | NUR ---
PT COMPLAINING OF ANXIETY AND GERD SYMPOMS. GI COCKTAIL GIVEN ALONG WITH ATIVAN PO FOR ANXIETY, ORDERED.
[2019-07-21 07:40] VITALS: BP 124/75
[2019-07-21] MEDS ORDERED: MAALOX/HYOSCYAMINE/LIDOCAINE 45 ML BTL PO ONE (08:00)
--- NOTE | 2019-07-21 08:29 | NUR ---
SPOKE WITH RN JACK AT [facility], AND NOTIFIED HER THAT PATIENT STATES HE WEARS 3L OF OXYGEN AT NIGHT. NURSING SALVAGE CLERK FROM [facility] CALLED AND I UPDATED HIM AND HE APPROVED PATIENT TO COME OVER TO [facility]. PT'S ROOM AIR SPO2 IS 90-92% WHILE AWAKE AND LAYING DOWN.
[2019-08-19] MEDS ORDERED: DULO30CA2 PO (13:22)
[2019-08-19] MEDS ORDERED: MULT-449 PO (13:22)
[2019-08-19] MEDS ORDERED: AMOX1TAB64 PO (13:22)
== END 2019-07-21 08:37 ==
LOC: ED 07-21 07:30
DX: R45.851 Suicidal ideations (principal); F10.220 Alcohol dependence with intoxication, uncomplicated; F33.9 Major depressive disorder, recurrent, unspecified; J44.9 Chronic obstructive pulmonary disease, unspecified; I10 Essential (primary) hypertension
CPT/HCPCS: 36415; 80053; 80307; 85025; 99285

== ENCOUNTER 2019-08-05 11:10 | Emergency (ER) | payer MEDICARE, MEDICAID ==
[~2019-08-05] VITALS: Ht 180.3 cm; Wt 80.0 kg
[~2019-08-05 11:10] MED LIST changes: -MULT-449 PO; +MULT1TAB60 PO
[2019-08-05] MEDS ORDERED: UMEC1DIS INH (11:40)
--- NOTE | 2019-08-05 11:53 | NUR ---
PT BIB EMS. APPARTMENT MACHINE PRINTER CALLED 911 AFTER CHECKING ON PATIENT. PT ATTEMPTED TO COMMIT SUICIDE BY TAKING HIS NORMAL 3L OF OXYGEN OFF. PT HAS HISTORY OF COPD AND SMOKES A PACK A DAY. PT ALSO STATES THAT TRIES TO KILL HIMSELF EVERY DAY BY DRINKING A GALLON OF VODKA A DAY. ALL CLOTHES REMOVED AND PT IN GOWN. PT'S ROOM AIR SAT WAS 72%. APPLIED 3 LITERS OF OXYGEN VIA NASAL CANNULA AND PATIENT WAS 86%. TURNED OXYGEN UP TO 4L AND SPO2 IS 93% NOW. PT RESTING COMFORTABLY. BREATHYLIZER IS 0.257. AWAITING ER MD.
--- NOTE | 2019-08-05 12:09 | NUR ---
TASK RN: PT PROVIDED W/ SI LUNCH MEAL TRAY. PT RESTING ON GURNEY. MONITORS IN PLACE. SITTER AT BEDSIDE.
--- NOTE | 2019-08-05 12:23 | NUR ---
TASK RN: CARLA ANDREWS AT BEDSIDE.
--- NOTE | 2019-08-05 13:04 | NUR ---
PT TO CT AT THIS TIME.
[2019-08-05 13:55] LABS: BASOPHILS # (AUTO) 0.08 x10^3/uL (0-0.1); BASOPHILS % (AUTO) 1 % (0-1); EOSINOPHILS # (AUTO) 0.02 x10^3/uL (0-0.4); EOSINOPHILS % (AUTO) 0 % (1-7); LYMPHOCYTES # (AUTO) 1.57 x10^3/uL (1-3.4); LYMPHOCYTES % (AUTO) 27 % (22-44); MD NO; MEAN CORPUSCULAR HGB CONC 32.8 g/dL (33.2-36.2); MEAN CORPUSCULAR VOLUME 94.5 fL (81-97); MEAN PLATELET VOLUME 6.4 fL (7.4-10.4); MONOCYTES # (AUTO) 0.37 x10^3/uL (0.2-0.8); MONOCYTES % (AUTO) 6 % (2-9); NEUTROPHILS # (AUTO) 3.82 x10^3/uL (1.8-6.8); NEUTROPHILS % (AUTO) 65 % (42-75); PLATELET COUNT 475 x10^3/uL (130-400); RED BLOOD COUNT 4.64 x10^6/uL (4.38-5.82); RED CELL DISTRIBUTION WIDTH 15.7 % (9.4-14.8)
[2019-08-05 14:08] LABS: ALANINE AMINOTRANSFERASE 32 U/L (12-78); ALBUMIN 2.8 g/dL (3.4-5.0); ANION GAP 11 mmol/L (5-15); CHLORIDE 109 mmol/L (98-107); CREATININE 0.72 mg/dL (0.7-1.3)
[2019-08-05 14:10] LABS: ALKALINE PHOSPHATASE 87 U/L (45-117); BILIRUBIN,TOTAL 0.3 mg/dL (0.2-1.0); TOTAL PROTEIN 6.9 g/dL (6.4-8.2)
[2019-08-05 14:11] LABS: SALICYLATE LEVEL < 1.7 mg/dL (2.8-20.0)
[2019-08-05 15:16] LABS: AMPHETAMINE SCREEN, URINE Negative (Negative); BARBITURATE SCREEN, URINE Negative (Negative); BENZODIAZEPINE SCREEN, URINE Positive (Negative); CANNABINOID SCREEN, URINE Negative (Negative); COCAINE SCREEN, URINE Negative (Negative); METHADONE SCREEN, URINE Negative (Negative); OPIATE SCREEN, URINE Negative (Negative)
[2019-08-05] MEDS ORDERED: LORazepam 1MG TABLET ONE ×2 (15:26→20:26)
[2019-08-05] MEDS ORDERED: LORazepam 1MG TABLET PO ONE (15:30)
--- NOTE | 2019-08-05 15:41 | NUR ---
PT WAS COMPLAINING OF LOW ABD PAIN AND REQUESTING, "ATIVAN OR SOMETHING" STATING, I'M WITHDRAWING BAD. NO TACHYCARDIA OR TREMORS NOTED. DR. WATSON NOTIFIED. ATIVAN AND U/A ORDERED. ATIVAN GIVEN.
--- NOTE | 2019-08-05 16:44 | NUR ---
DINNER TRAY ORDERED FOR PATIENT. PT SLEEPING AT THIS TIME. PT REMAINS UNDER CONSTANT SUPERIVION OF SITTER AND REMAINS SAFE.
--- NOTE | 2019-08-05 17:13 | NUR ---
Elba hood in [facility] - 08/05/19 at 1715 by [facility] IS ACCEPTING PATIENT. DR. VANEGAS IS THE ACCEPTING DOCTOR.
--- NOTE | 2019-08-05 17:49 | NUR ---
SBAR HAND-OFF REPORT GIVEN TO ANA CRISTINA OLIVARES.
--- NOTE | 2019-08-05 18:00 | NUR ---
RECEIVED REPORT FROM ANA CRISTINA EDDY. PT RESTING ON GURNEY. RIP. PT ON MONITORS. SITTER REMAINS AT BEDSIDE.
--- NOTE | 2019-08-05 18:25 | NUR ---
ATTEMPTED TO BREATHALYZE PT. PT CONTINUES TO BE UNABLE TO BREATHE DEEPLY ENOUGH TO BLOW INTO BREATHALYZER EFFECTIVELY AFTER MULTIPLE ATTEMPTS. DOES NOT WANT BLOOD DRAWN FOR BAL. PT EDUCATED THAT HE WILL BE PROVIDED W/ MORE TIME AND RE-BREATHALYZED WITHIN 1 HR AND THEN POSSIBLE NEED FOR BAL. PT VERBALZIES UNDERSTANDING.
--- NOTE | 2019-08-05 18:49 | NUR ---
REPORT FROM ELISE ASSUMING CARE OF PT AT THIS TIME
--- NOTE | 2019-08-05 18:52 | NUR ---
REPORT GIVEN TO CALEB MEJIA RN.
--- NOTE | 2019-08-05 19:00 | NUR ---
TECH AT BEDSIDE TO ATTEMPT BREATHALYZER AT THIS TIME
[2019-08-05 19:48] LABS: MICROSCOPIC AUTO
--- NOTE | 2019-08-05 20:19 | NUR ---
PT RESTING ON [facility] SITTER IN [facility] FOR SAFETY AWAITING CONFIRMATION FROM [facility]
--- NOTE | 2019-08-05 20:28 | NUR ---
PT REQ MORE ATIVAN DUE TO SHAKING AND FEELING ANXIOUS, MD UPDATED ADDITIONAL ORDERS AT THIS TIME, PT MEDICATED PER MAR
[2019-08-05] MEDS ORDERED: LORazepam 1MG TABLET PO PRN (20:30)
--- NOTE | 2019-08-05 20:32 | NUR ---
Met with pt and reviewed with psychiatrist. Awaiting call back for pre-cert.
--- NOTE | 2019-08-05 21:35 | NUR ---
PT RESTING ON GURNEY SITTER IN [place] NO NEEDS AT THIS TIME
--- NOTE | 2019-08-05 22:12 | NUR ---
SPOKE WITH OSEAS DE LA PAZ PT TO GO TO [facility] SOON
[2019-08-05 22:33] VITALS: BP 130/71
== END 2019-08-05 22:35 ==
LOC: ED 12:11
DX: S09.90XA Unspecified injury of head, initial encounter (principal); R45.851 Suicidal ideations; R45.4 Irritability and anger; F10.239 Alcohol dependence with withdrawal, unspecified; I10 Essential (primary) hypertension; J44.9 Chronic obstructive pulmonary disease, unspecified; Z88.1 Allergy status to other antibiotic agents; Y90.9 Presence of alcohol in blood, level not specified; X83.8XXA Intentional self-harm by other specified means, initial encounter; Y93.89 Activity, other specified; Y92.89 Other specified places as the place of occurrence of the external cause; Y99.8 Other external cause status
CPT/HCPCS: 36415; 70450; 80053; 80307; 81001; 85025; 99285

== ENCOUNTER 2020-01-09 17:33 | Emergency (ER) | payer MEDICARE, MEDICAID ==
[~2020-01-09] VITALS: Ht 175.3 cm; Wt 91.9 kg
[~2020-01-09 17:33] MED LIST changes: +AMLO-211 PO; -AMLO10TA8 PO; +AMOX1TAB64 PO; +MULT-449 PO; -MULT1TAB60 PO
--- NOTE | 2020-01-09 18:00 | NUR ---
PT REFUSED TO FOLLOW ED SI POLICY, PT WOULD NOT GIVE HIS BELONGINGS TO ER STAFF, STATING "THEY WHERE STOLLEN 2X FROM HERE" PT REFUSED TO GIVE RN HIS NAME AND SAID HE JUST WANTS TO SLEEP HERE
--- NOTE | 2020-01-09 18:24 | NUR ---
PT DENIED BEING SUICIDAL AND SAID HE JUST MIGHT IF HE DOES NOT HAVE HOME O2 BOTTLE. PT STATED HIS OLD O2 BOTTLE WAS STOLLEN" PT IN NO OBVIOUS RESP DISTRESS
[2020-01-09 18:30] VITALS: BP 142/87
--- NOTE | 2020-01-09 18:34 | NUR ---
PT PROVIDED BUS PASS, PT CALLED RN "A ASSHOLE" WHEN DISCHARGE PAPERWORK AND BUS PASS WAS HANDED TO PT
== END 2020-01-09 18:36 | disposition home or self-care (01) ==
LOC: ED 18:15
DX: G47.30 Sleep apnea, unspecified (principal); R94.31 Abnormal electrocardiogram [ECG] [EKG]; Z76.0 Encounter for issue of repeat prescription; J44.9 Chronic obstructive pulmonary disease, unspecified; I10 Essential (primary) hypertension; Z72.9 Problem related to lifestyle, unspecified
CPT/HCPCS: 93005; 99283

== ENCOUNTER 2020-02-14 12:05 | Emergency (ER) | payer MEDICARE, MEDICAID ==
[~2020-02-14] VITALS: Ht 177.8 cm; Wt 84.2 kg
[2020-02-14] MEDS ORDERED: THIAMINE 100MG TABLET ONE (12:59)
[2020-02-14] MEDS ORDERED: THIAMINE 100MG TABLET PO ONE (13:00)
[2020-02-14 13:23] LABS: BASOPHILS % (AUTO) 1 % (0-1); EOSINOPHILS % (AUTO) 1 % (1-7); LYMPHOCYTES % (AUTO) 20 % (22-44); MEAN CORPUSCULAR HEMOGLOBIN 32.2 pg (27.5-34.5); MEAN CORPUSCULAR HGB CONC 33.5 g/dL (33.2-36.2); MEAN PLATELET VOLUME 7.6 fL (7.4-10.4); MONOCYTES % (AUTO) 12 % (2-9); NEUTROPHILS % (AUTO) 65 % (42-75); PLATELET COUNT 237 x10^3/uL (130-400); RED BLOOD COUNT 5.18 x10^6/uL (4.38-5.82); RED CELL DISTRIBUTION WIDTH 17.5 % (9.4-14.8)
[2020-02-14 13:24] LABS: MD NO
[2020-02-14 13:35] LABS: ALANINE AMINOTRANSFERASE 29 U/L (12-78); ALBUMIN 3.5 g/dL (3.4-5.0); ANION GAP 8 mmol/L (5-15); CALCIUM 8.2 mg/dL (8.5-10.1); CHLORIDE 107 mmol/L (98-107); CREATININE 0.98 mg/dL (0.7-1.3)
[2020-02-14 13:37] LABS: ALKALINE PHOSPHATASE 98 U/L (45-117); BILIRUBIN,TOTAL 0.7 mg/dL (0.2-1.0); TOTAL PROTEIN 7.2 g/dL (6.4-8.2)
--- NOTE | 2020-02-14 14:42 | NUR ---
RECEIVED REPORT FROM
--- NOTE | 2020-02-14 15:01 | NUR ---
PT UPRIGHT ON GURNEY WATCHING TV, RESPONDS TO STAFF APPROP, COMFORT MEASURES PROVIDED, CALL LIGHT WITHIN REACH.
[2020-02-14 15:25] LABS: SALICYLATE LEVEL < 1.7 mg/dL (2.8-20.0)
[2020-02-14 16:03] VITALS: BP 126/42
--- NOTE | 2020-02-14 16:03 | NUR ---
PT REMAINS UPRIGHT ON GURNEY WATCHING TV, RESPONDS TO STAFF APPROP, COMFORT MEASURES PROVIDED INCL MEAL TRAY GIVEN PER ERP OK, CALL LIGHT WITHIN REACH.
--- NOTE | 2020-02-14 17:28 | NUR ---
Patient given discharge instructions and they have confirmed that they understand the instructions. Pt transported to [facility] [id number] accompanied by transport staff, report given to Amina.
--- NOTE | 2020-02-14 17:28 | NUR ---
Elba hood in [facility] - 02/14/20 at 1728 by FARHAT Patient given discharge instructions and they have confirmed that they understand the instructions. Patient ambulatory with steady gait.
== END 2020-02-14 17:47 | disposition home or self-care (01) ==
LOC: ED 13:11
DX: R06.02 Shortness of breath (principal); R45.851 Suicidal ideations; F10.120 Alcohol abuse with intoxication, uncomplicated; R94.31 Abnormal electrocardiogram [ECG] [EKG]; J44.9 Chronic obstructive pulmonary disease, unspecified; I10 Essential (primary) hypertension; Y90.0 Blood alcohol level of less than 20 mg/100 ml
CPT/HCPCS: 36415; 71045; 80053; 80299; 80320; 80329; 84443; 85025; 87426; 93005; 99283; 99285; G0480

== ENCOUNTER 2020-02-14 16:33 | Inpatient (IN) | payer MEDICARE, MEDICAID ==
[~2020-02-14] VITALS: Ht 177.8 cm; Wt 78.8 kg
[2020-02-14] MEDS ORDERED: LORazepam 1MG TABLET PO PRN (17:30)
[2020-02-14] MEDS ORDERED: TRAZODONE 50MG TABLET PO PRN (17:30)
[2020-02-14] MEDS ORDERED: DOCUSATE 100 MG CAPSULE PO PRN (17:30)
[2020-02-14] MEDS ORDERED: POLYETHYLENE GLYCOL 17 GM PACKET PO PRN (17:30)
[2020-02-14] MEDS ORDERED: ONDANSETRON ODT 4 MG PO PRN (17:30)
[2020-02-14] MEDS ORDERED: BISACODYL 10 MG SUPP PR PRN (17:30)
[2020-02-14 18:15] VITALS: BP 144/70
[2020-02-14] MEDS ORDERED: LORazepam 1MG TABLET ONE (18:32)
[2020-02-14 19:37] VITALS: BP 112/54
[2020-02-14] MEDS: LORazepam 1MG TABLET PO SCH (20:25)
[2020-02-14 20:53] LABS: MICROSCOPIC NOT IND
[2020-02-14 21:05] LABS: AMPHETAMINE SCREEN, URINE Negative (Negative); BARBITURATE SCREEN, URINE Negative (Negative); BENZODIAZEPINE SCREEN, URINE Positive (Negative); CANNABINOID SCREEN, URINE Negative (Negative); COCAINE SCREEN, URINE Negative (Negative); METHADONE SCREEN, URINE Negative (Negative); OPIATE SCREEN, URINE Negative (Negative)
[2020-02-15] MEDS: LORazepam 1MG TABLET PO SCH ×4 (03:00→20:46)
[2020-02-15 06:09] LABS: CHOL/HDL RATIO 2.1; FREE T4 (FREE THYROXINE) 0.92 ng/dL (0.76-1.46); LDL/HDL RATIO 0.9 (0.5-3.0)
[2020-02-15 07:00] VITALS: BP 114/61
[2020-02-15] MEDS ORDERED: LORazepam 2 MG/ML, 1ML IV PRN (08:00)
[2020-02-15] MEDS ORDERED: CHLORDIAZEPOXIDE 25 MG CAPSULE PO PRN ×3 (08:00)
[2020-02-15] MEDS ORDERED: ONDANSETRON 2MG/ML, 2ML IVPush PRN (08:00)
[2020-02-15] MEDS ORDERED: hydrALAzine 20 MG/ML, 1ML IVPush PRN (08:00)
[2020-02-15] MEDS ORDERED: CHLORDIAZEPOXIDE 10 MG CAPSULE PO PRN (08:00)
[2020-02-15] MEDS ORDERED: ENOXAPARIN 40 MG/0.4 ML SQ SCH (08:00)
[2020-02-15] MEDS: NICOTINE 21 MG/24 HR PATCH.TD24 TD SCH (08:24)
[2020-02-15] MEDS: THIAMINE 100MG TABLET PO SCH (08:25)
[2020-02-15] MEDS: AMLODIPINE 10 MG TAB PO SCH (08:25)
[2020-02-15] MEDS: MULTIVITAMIN 1 TABLET PO SCH (08:25)
[2020-02-15] MEDS: FOLIC ACID 1 MG TABLET PO SCH (08:25)
[2020-02-15] MEDS: ACAMPROSATE 333 MG TABLET.DR PO SCH ×3 (08:26→20:45)
[2020-02-15] MEDS: OMEPRAZOLE 20 MG CAPSULE.DR PO SCH (08:26)
[2020-02-15] MEDS ORDERED: (Umeclidinium Brm/Vilanterol Tr (Anoro Ellipta 62.5-25 Mcg Inh INH SCH (09:00)
[2020-02-15] MEDS ORDERED: THIAMINE 100MG TABLET PO SCH (09:00)
[2020-02-15] MEDS: ALBUTEROL-IPRATROPIUM MDI INH INH SCH ×3 (10:02→20:46)
[2020-02-15] MEDS: DEXAMETHASONE 4 MG TABLET PO SCH ×2 (10:04→21:24)
[2020-02-15] MEDS: ACETAMINOPHEN 325 MG TABLET PO PRN (12:43)
[2020-02-15] MEDS: DULOXETINE 30 MG CAPSULE.DR PO SCH (13:31)
[2020-02-15 19:30] VITALS: BP 125/67
[2020-02-16] MEDS: ALBUTEROL-IPRATROPIUM MDI INH INH SCH ×4 (03:00→20:12)
[2020-02-16] MEDS: LORazepam 1MG TABLET PO SCH ×2 (03:00→08:30)
[2020-02-16 07:02] VITALS: BP 116/77
[2020-02-16] MEDS: FOLIC ACID 1 MG TABLET PO SCH (08:29)
[2020-02-16] MEDS: ACETAMINOPHEN 325 MG TABLET PO PRN (08:29)
[2020-02-16] MEDS: DULOXETINE 30 MG CAPSULE.DR PO SCH (08:29)
[2020-02-16] MEDS: ACAMPROSATE 333 MG TABLET.DR PO SCH ×3 (08:29→20:12)
[2020-02-16] MEDS: MULTIVITAMIN 1 TABLET PO SCH (08:30)
[2020-02-16] MEDS: THIAMINE 100MG TABLET PO SCH (08:30)
[2020-02-16] MEDS: DEXAMETHASONE 4 MG TABLET PO SCH ×2 (08:30→20:12)
[2020-02-16] MEDS: NICOTINE 21 MG/24 HR PATCH.TD24 TD SCH (08:30)
[2020-02-16] MEDS: OMEPRAZOLE 20 MG CAPSULE.DR PO SCH (08:30)
[2020-02-16] MEDS: AMLODIPINE 10 MG TAB PO SCH (08:30)
[2020-02-16] MEDS: LORazepam 0.5MG TABLET PO PRN ×2 (13:09→20:12)
[2020-02-16 19:52] VITALS: BP 144/57
[2020-02-17] MEDS: ALBUTEROL-IPRATROPIUM MDI INH INH SCH ×4 (03:00→20:30)
[2020-02-17 07:08] VITALS: BP 111/72
[2020-02-17] MEDS: ACAMPROSATE 333 MG TABLET.DR PO SCH ×3 (08:42→20:31)
[2020-02-17] MEDS: MULTIVITAMIN 1 TABLET PO SCH (08:42)
[2020-02-17] MEDS: FOLIC ACID 1 MG TABLET PO SCH (08:42)
[2020-02-17] MEDS: LORazepam 0.5MG TABLET PO PRN ×3 (08:42→20:31)
[2020-02-17] MEDS: DULOXETINE 30 MG CAPSULE.DR PO SCH (08:42)
[2020-02-17] MEDS: OMEPRAZOLE 20 MG CAPSULE.DR PO SCH (08:42)
[2020-02-17] MEDS: THIAMINE 100MG TABLET PO SCH (08:42)
[2020-02-17] MEDS: AMLODIPINE 10 MG TAB PO SCH (08:43)
[2020-02-17] MEDS: DEXAMETHASONE 4 MG TABLET PO SCH ×2 (08:43→20:31)
[2020-02-17] MEDS: NICOTINE 21 MG/24 HR PATCH.TD24 TD SCH (08:44)
[2020-02-17] MEDS: ACETAMINOPHEN 325 MG TABLET PO PRN (14:06)
[2020-02-17 19:47] VITALS: BP 111/65
[2020-02-18] MEDS: ALBUTEROL-IPRATROPIUM MDI INH INH SCH ×4 (04:04→20:31)
[2020-02-18 07:57] VITALS: BP 113/63
[2020-02-18] MEDS: DULOXETINE 30 MG CAPSULE.DR PO SCH (08:31)
[2020-02-18] MEDS: FOLIC ACID 1 MG TABLET PO SCH (08:31)
[2020-02-18] MEDS: MULTIVITAMIN 1 TABLET PO SCH (08:32)
[2020-02-18] MEDS: LORazepam 0.5MG TABLET PO PRN ×3 (08:32→20:29)
[2020-02-18] MEDS: DEXAMETHASONE 4 MG TABLET PO SCH ×2 (08:32→20:28)
[2020-02-18] MEDS: ACAMPROSATE 333 MG TABLET.DR PO SCH ×3 (08:32→21:00)
[2020-02-18] MEDS: THIAMINE 100MG TABLET PO SCH (08:32)
[2020-02-18] MEDS: AMLODIPINE 10 MG TAB PO SCH (08:32)
[2020-02-18] MEDS: OMEPRAZOLE 20 MG CAPSULE.DR PO SCH (08:32)
[2020-02-18] MEDS: NICOTINE 21 MG/24 HR PATCH.TD24 TD SCH (08:37)
[2020-02-18 20:02] VITALS: BP 120/69
[2020-02-19] MEDS: ALBUTEROL-IPRATROPIUM MDI INH INH SCH ×4 (03:30→20:02)
[2020-02-19 07:00] VITALS: BP 138/72
[2020-02-19] MEDS: AMLODIPINE 10 MG TAB PO SCH (08:32)
[2020-02-19] MEDS: MULTIVITAMIN 1 TABLET PO SCH (08:32)
[2020-02-19] MEDS: THIAMINE 100MG TABLET PO SCH (08:32)
[2020-02-19] MEDS: NICOTINE 21 MG/24 HR PATCH.TD24 TD SCH (08:32)
[2020-02-19] MEDS: OMEPRAZOLE 20 MG CAPSULE.DR PO SCH (08:32)
[2020-02-19] MEDS: FOLIC ACID 1 MG TABLET PO SCH (08:33)
[2020-02-19] MEDS: DULOXETINE 30 MG CAPSULE.DR PO SCH (08:33)
[2020-02-19] MEDS: LORazepam 0.5MG TABLET PO PRN ×3 (08:33→20:02)
[2020-02-19] MEDS: ACAMPROSATE 333 MG TABLET.DR PO SCH ×3 (08:35→20:02)
[2020-02-19] MEDS ORDERED: AMLO-211 PO (13:27)
[2020-02-19] MEDS ORDERED: DULO30CA2 PO (13:27)
[2020-02-19] MEDS ORDERED: MULT-449 PO (13:27)
[2020-02-19] MEDS ORDERED: TRAZ50TA66 PO (13:27)
[2020-02-19] MEDS ORDERED: OMEP-110 PO (13:27)
[2020-02-19] MEDS ORDERED: ACAM333T7 PO (13:27)
[2020-02-19] MEDS ORDERED: NICO-587 TD (13:27)
[2020-02-19] MEDS ORDERED: Albuterol-Ipratropium Mdi INH (13:27)
[2020-02-19] MEDS: ACETAMINOPHEN 325 MG TABLET PO PRN (13:48)
[2020-02-19 19:22] VITALS: BP 133/66
[2020-02-20] MEDS: ALBUTEROL-IPRATROPIUM MDI INH INH SCH ×2 (03:30→08:34)
[2020-02-20 07:30] VITALS: BP 119/74
[2020-02-20] MEDS: DULOXETINE 30 MG CAPSULE.DR PO SCH (08:24)
[2020-02-20] MEDS: MULTIVITAMIN 1 TABLET PO SCH (08:24)
[2020-02-20] MEDS: ACAMPROSATE 333 MG TABLET.DR PO SCH (08:24)
[2020-02-20] MEDS: THIAMINE 100MG TABLET PO SCH (08:24)
[2020-02-20] MEDS: OMEPRAZOLE 20 MG CAPSULE.DR PO SCH (08:24)
[2020-02-20] MEDS: AMLODIPINE 10 MG TAB PO SCH (08:24)
[2020-02-20] MEDS: FOLIC ACID 1 MG TABLET PO SCH (08:24)
[2020-02-20] MEDS: NICOTINE 21 MG/24 HR PATCH.TD24 TD SCH (08:26)
== END 2020-02-20 08:50 | disposition home or self-care (01) | DRG 885 ==
LOC: 3E 18:23
PROVIDERS: ADMIT Psychiatry & Neurology Psychosomatic Medicine; ATTEND Psychiatry & Neurology Psychosomatic Medicine
DX: F33.2 Major depressive disorder, recurrent severe without psychotic features (principal); R45.851 Suicidal ideations; F10.239 Alcohol dependence with withdrawal, unspecified; F17.210 Nicotine dependence, cigarettes, uncomplicated; K21.9 Gastro-esophageal reflux disease without esophagitis; I10 Essential (primary) hypertension; J44.9 Chronic obstructive pulmonary disease, unspecified; Z79.899 Other long term (current) drug therapy; Z80.1 Family history of malignant neoplasm of trachea, bronchus and lung; Z82.3 Family history of stroke; Z88.8 Allergy status to other drugs, medicaments and biological substances; Z88.1 Allergy status to other antibiotic agents
CPT/HCPCS: 36415; 80061; 80307; 81003; 82140; 84439; 84443

== ENCOUNTER 2020-03-13 10:20 | Emergency (ER) | payer MEDICARE, MEDICAID ==
[~2020-03-13] VITALS: Ht 177.8 cm; Wt 80.0 kg
[~2020-03-13 10:20] MED LIST changes: +Albuterol-Ipratropium Mdi INH; +NICO-587 TD; +PRED20TA PO; +TRAZ50TA66 PO
[2020-03-13 10:24] VITALS: BP 115/76
--- NOTE | 2020-03-13 10:29 | NUR ---
PT CAME IN WANTING TO DETOX ETOH. PT STATES HE GETS REALLY ANXIOUS AND THE ONLY THING THAT HELPS WITH HIS ANXIETY IS TO DRINK A PINT OF ETOH. PT RESTING IN [place] CONNECTED TO MONITORING EQUIPMENT.
[2020-03-13] MEDS ORDERED: LORazepam 1MG TABLET ONE (10:42)
--- NOTE | 2020-03-13 10:48 | NUR ---
PT SEEKING DETOX REFERREAL TO [facility]. FACILITY IS ACCEPTING PATIENTS
[2020-03-13] MEDS ORDERED: LORazepam 1MG TABLET PO ONE (11:00)
--- NOTE | 2020-03-13 11:18 | NUR ---
Patient/Caregiver given discharge instructions and they have confirmed that they understand the instructions. Patient ambulatory with steady gait.
== END 2020-03-13 11:20 | disposition home or self-care (01) ==
LOC: ED 10:45
DX: F10.139 Alcohol abuse with withdrawal, unspecified (principal); F41.9 Anxiety disorder, unspecified; R45.4 Irritability and anger; R45.1 Restlessness and agitation; F17.200 Nicotine dependence, unspecified, uncomplicated; I10 Essential (primary) hypertension; J44.9 Chronic obstructive pulmonary disease, unspecified; Y90.0 Blood alcohol level of less than 20 mg/100 ml
CPT/HCPCS: 99283

== ENCOUNTER → 2020-05-15 | Outpatient (CLI) | payer MEDICARE, MEDICAID ==
[~2020-05-15] MED LIST changes: -FOLI-17 PO; +FOLI1TAB32 PO
== END | disposition home or self-care (01) ==
LOC: CVU 14:52
PROVIDERS: ATTEND Family Medicine
DX: I70.203 Unspecified atherosclerosis of native arteries of extremities, bilateral legs (principal); M79.661 Pain in right lower leg
CPT/HCPCS: 93922; 93925

== ENCOUNTER 2020-07-16 08:00 | Outpatient (CLI) | payer MEDICARE, MEDICAID ==
[2020-07-16] MEDS ORDERED: OMEP20TA62 PO (15:51)
[2020-07-16] MEDS ORDERED: MULT-449 PO (15:51)
[2020-07-16] MEDS ORDERED: UMEC1DIS INH (15:51)
[2020-07-16] MEDS ORDERED: AMLO-211 PO (15:51)
[2020-07-16] MEDS ORDERED: ASPI81TA45 PO (15:51)
[2020-07-16] MEDS ORDERED: MIRT-14 PO (15:51)
[2020-07-16 16:24] LABS: BASOPHILS % (AUTO) 0 % (0-1); EOSINOPHILS % (AUTO) 2 % (1-7); LYMPHOCYTES % (AUTO) 25 % (22-44); MEAN CORPUSCULAR HEMOGLOBIN 31.2 pg (27.5-34.5); MEAN CORPUSCULAR HGB CONC 33.7 g/dL (33.2-36.2); MONOCYTES % (AUTO) 12 % (2-9); NEUTROPHILS % (AUTO) 61 % (42-75); PLATELET COUNT 276 x10^3/uL (130-400); RED BLOOD COUNT 5.36 x10^6/uL (4.38-5.82)
[2020-07-16 16:29] LABS: ALBUMIN 3.7 g/dL (3.4-5.0); ANION GAP 7 mmol/L (5-15); CHLORIDE 112 mmol/L (98-107)
[2020-07-16 16:32] LABS: ALANINE AMINOTRANSFERASE 18 U/L (12-78); ALKALINE PHOSPHATASE 95 U/L (45-117); BILIRUBIN,TOTAL 0.4 mg/dL (0.2-1.0); CREATININE 0.84 mg/dL (0.7-1.3); TOTAL PROTEIN 7.2 g/dL (6.4-8.2)
[2020-07-19] MEDS ORDERED: ATOR20TA37 PO (06:47)
[2020-07-19] MEDS ORDERED: QUET25TA2 PO (06:47)
[2020-07-19] MEDS ORDERED: DULO30CA2 PO (06:47)
[2020-07-24] MEDS ORDERED: CLOP75TA PO (15:26)
[2020-07-24] MEDS ORDERED: HYDR-3241 PO (15:26)
[2020-07-24] MEDS ORDERED: DOCU-131 PO (15:26)
== END 2020-07-16 23:59 | disposition home or self-care (01) ==
LOC: STAR 08:00
PROVIDERS: ATTEND Surgery
DX: Z01.818 Encounter for other preprocedural examination (principal); J44.9 Chronic obstructive pulmonary disease, unspecified; J84.10 Pulmonary fibrosis, unspecified; I49.1 Atrial premature depolarization; I25.2 Old myocardial infarction; Z20.822 Contact with and (suspected) exposure to COVID-19
CPT/HCPCS: 36415; 71046; 80053; 85025; 93005; U0003; U0005